=== PATIENT | male | born 1960 | race Caucasian/White ===

== ENCOUNTER 2017-03-10 11:29 | Emergency (ER) | payer OTHER ==
[~2017-03-10] VITALS: Wt 81.8 kg
[2017-03-10 12:09] LABS: URINE BLOOD (Dip) POC 3+ (NEGATIVE)
--- NOTE | 2017-03-10 12:42 | ERA ---
ER Documentation Chief Complaint Date/Time DATE: 03/10/17 TIME: 12:38 Chief Complaint dysuria, fever HPI 56-year-old male presenting with a chief complaints of dysuria. Patient is also complaining of fevers. Duration of symptoms is 2 days. Denies chills, hematuria, back pain, abdominal pain, discharge, foul odor, nausea, vomiting, diarrhea, constipation, headache, cough. Has not had symptoms in the past. Denies any medical conditions. ROS All systems reviewed and are negative except as per history of present illness. Medications Home Meds Active Scripts Phenazopyridine Hcl* (Pyridium*) 100 Mg Tab, 100 MG PO TID Y for URINARY PAIN, # 8 TAB Prov:ROSENDO COWAN PA-C 03/10/17 Ciprofloxacin Hcl* (Ciprofloxacin Hcl*) 500 Mg Tablet, 500 MG PO BID for 14 Days , TAB Prov:ROSENDO COWAN PA-C 03/10/17 PMhx/Soc History of Surgery: Yes (rectal fistula repair.) Anesthesia Reaction: No Hx Neurological Disorder: No Hx Respiratory Disorders: No Hx Cardiac Disorders: No Hx Psychiatric Problems: No Hx Miscellaneous Medical Probl: No Hx Alcohol Use: Yes Hx Substance Use: No Hx Tobacco Use: No Smoking Status: Never smoker Physical Exam Vitals Vital Signs Date Time Temp Pulse Resp B/P Pulse Ox O2 Delivery O2 Flow Rate FiO2 03/10/17 11:32 100.7 96 20 142/65 96 Physical Exam Const: Healthy-appearing. No acute distress. Abd: Mild suprapubic tenderness. Soft, non tender, non distended. No guarding, masses. Normal bowel sounds. No McBurney's point tenderness. Back: No midline, flank or CVA tenderness Head: Normocephalic, Atraumatic. Eyes: Non-injected; No scleral erythema, discharge or foreign body. Ears: Normal External Ears, EACs clear, TM normal bilaterally without erythema. Nose: Normal external nose; no discharge, septal deviation, or sinus tenderness. Neck: No cervical lymphadenopathy, masses or goiter palpated. Trachea midline. Supple ~ No meningismus. Pulm: No dyspnea, stridor, tripoding or drooling. Good air movement. Clear to auscultation bilaterally. Cardio: Regular rate and rhythm; No murmurs, gallops or rubs auscultated. No JVD grossly observed. Radial and posterior tibial pulses 2+ bilaterally. Capillary refill less than 2 seconds. MS: Normal motor strength, normal tone. Skin: No petechiae or rashes. No ulcer, induration, jaundice. Good turgor. . Ext: No cyanosis, edema or palpable cord. Normal movement of all extremities grossly observed. Neur: Awake, alert and oriented x3. Neurovascularly intact bilaterally. Psych: Normal Mood and Affect. Results 24 hrs Laboratory Tests Test 03/10/17 12:14 03/10/17 12:15 Bedside Urine pH (LAB) 5.5 Bedside Urine Protein (LAB) 3+ Bedside Urine Glucose (UA) Negative Bedside Urine Ketones (LAB) 1+ Bedside Urine Blood 3+ Bedside Urine Nitrite (LAB) Positive Bedside Urine Leukocyte Esterase (L 1+ Urine Color SAMANTHA Urine Clarity CLOUDY Urine pH 5.0 Urine Specific Mccarley 1.021 Urine Ketones 1+mg/dL Urine Nitrite NEGATIVEmg/dL Urine Bilirubin NEGATIVEmg/dL Urine Urobilinogen NEGATIVEmg/dL Urine Leukocyte Esterase 3+Bruce/ul Urine Microscopic RBC 38/HPF Urine Microscopic WBC > 182/HPF Urine Bacteria MODERATE/HPF Urine Mucus FEW/HPF Urine Hemoglobin 2+mg/dL Urine Glucose NEGATIVEmg/dL Urine Total Protein 2+mg/dl Current Medications Medications (Trade) Dose Ordered Sig/Marian Route PRN Reason Start Time Stop Time Status Last Admin Dose Admin Phenazopyridine HCl (Pyridium) 100 mg ONCE ONCE PO 03/10/17 13:30 03/10/17 13:30 DC Ketorolac Tromethamine (Toradol) 15 mg ONCE STAT IM 03/10/17 13:18 03/10/17 13:19 DC 03/10/17 13:22 Procedures/MDM Patient was evaluated and worked up for dysuria as described in the history and physical exam. Workup in the ED included urinalysis, urine dip and urine culture. Most likely diagnosis is urinary tract infection/cystitis without hematuria. Patient will be treated with outpatient antibiotics 14 days and has been told to follow-up with PCP. At this time I do not suspect pyelonephritis, testicular torsion, mechanical obstruction, hernia, appendicitis, intestinal ischemia, AAA, or diverticulitis. The patient is well appearing, and tolerates PO. I have spoke with the patient regarding their condition and future management. They have verbally responded that they understand their status and treatment plan. The patients vitals are stable, and their current condition is appropriate for discharge. The patient will be given discharge instructions with return precautions. Departure Diagnosis: Primary Impression: Complicated urinary tract infection Additional Impression: Dysuria Condition: Stable Additional Instructions: Follow up with your PCP within the next 1-3 days for a more thorough evaluation and a possible referral to a specialist. Return the the emergency department immediately if symptoms worsen or change. If you have any questions regarding medications, ask your pharmacist or us before you leave. If any adverse reactions occur while taking your medications, discontinue the treatment and return to the emergency department immediately. Take your medications as directed, and complete the entire course of treatment. ROSENDO COWAN PA-C Mar 10, 2017 12:42
[2017-03-10 13:07] LABS: ADD UMIC YES; UR ASCORBIC ACID NEGATIVE (NEGATIVE); UR BACTERIA MODERATE /HPF (NONE SEEN); UR BILIRUBIN (Dip) NEGATIVE (NEGATIVE); UR BLOOD (Dip) 2+ mg/dL (NEGATIVE); UR CLARITY CLOUDY (CLEAR); UR COLOR AMBER (YELLOW); UR GLUCOSE (Dip) NEGATIVE (NEGATIVE); UR KETONES (Dip) 1+ mg/dL (NEGATIVE); UR LEUKOCYTE ESTERASE (Dip) 3+ Leu/ul (NEGATIVE); UR MUCUS FEW /HPF (NONE SEEN); UR NITRITE (Dip) NEGATIVE (NEGATIVE); UR RBC 38 /HPF (0-5); UR SPECIFIC GRAVITY (Dip) 1.021 (1.003-1.030); UR TOTAL PROTEIN (Dip) 2+ mg/dl (NEGATIVE); UR UROBILINOGEN (Dip) NEGATIVE (NEGATIVE); UR WBC CLUMPS MANY /HPF (NONE SEEN)
[2017-03-10] MEDS ORDERED: PHEN-537 PO (13:09)
[2017-03-10] MEDS ORDERED: CIPR500T4 PO (13:09)
[2017-03-10] MEDS ORDERED: KETOROLAC 15 MG INJ IM STA (13:18)
[2017-03-10] MEDS ORDERED: PHENAZOPYRIDINE 100 MG TAB PO ONE (13:30)
[2017-03-19 16:16] LABS: URINE BLOOD (Dip) POC 3+ (NEGATIVE)
== END 2017-03-10 13:26 | disposition home or self-care (01) ==
LOC: FTE 11:29
DX: N39.0 Urinary tract infection, site not specified (principal)
CPT/HCPCS: 81001; 81003; 87086; J1885; 96372